=== PATIENT | female | born 1930 | race Two or more races ===

== ENCOUNTER 2016-05-02 12:08 | Inpatient (IN) | payer MEDICARE, OTHER ==
[~2016-05-02] VITALS: Ht 160 cm; Wt 46.7 kg
[2016-05-02] MEDS ORDERED: DIAZ5TAB4 PO (15:56)
[2016-05-02] MEDS ORDERED: ACET-868 PO (15:56)
[2016-05-02] MEDS ORDERED: MONT10TA22 PO (15:56)
[2016-05-02] MEDS ORDERED: CALC-108 PO (15:56)
[2016-05-02] MEDS ORDERED: APIX2.5T PO (15:56)
[2016-05-02] MEDS ORDERED: NEBI5TAB8 PO (15:56)
[2016-05-02] MEDS ORDERED: DOCU-25 PO (15:56)
[2016-05-02] MEDS ORDERED: SERT100T12 PO (15:56)
[2016-05-02] MEDS ORDERED: CETI-102 PO (15:56)
[2016-05-02] MEDS ORDERED: PSYL1PAC8 PO (15:56)
[2016-05-02] MEDS ORDERED: SENN1TAB77 PO (15:56)
[2016-05-02] MEDS ORDERED: METH5TAB6 PO (15:56)
[2016-05-02 16:00] VITALS: BP 132/61
[2016-05-02] MEDS ORDERED: IV NS 0.9% 1,000 ML IV PRN (16:28)
[2016-05-02] MEDS ORDERED: ONDANSETRON HCL/PF 4 MG/2 ML VIAL IVP PRN (16:30)
[2016-05-02] MEDS ORDERED: ZOLPIDEM TARTRATE 5 MG TABLET PO PRN (16:30)
[2016-05-02] MEDS ORDERED: MAG HYDROX/AL HYDROX/SIMETH 30 ML UDC PO PRN (16:30)
[2016-05-02] MEDS ORDERED: Z GUARD REMEDY 2 OZ OINT TP PRN (16:30)
[2016-05-02] MEDS ORDERED: ENOXAPARIN SODIUM 40 MG/0.4 ML DISP.SYRIN SQ SCH (16:30)
[2016-05-02] MEDS ORDERED: ACETAMINOPHEN 325 MG TABLET PO PRN ×2 (16:30)
[2016-05-02] MEDS ORDERED: MAGNESIUM HYDROXIDE 30 ML UDC PO PRN (16:30)
[2016-05-02] MEDS ORDERED: HYDROCODONE/APAP 5/325MG 1 EACH TABLET PO PRN (16:30)
[2016-05-02] MEDS: DOCUSATE SODIUM 100 MG CAPSULE PO SCH (17:00)
[2016-05-02] MEDS ORDERED: IV SET PRIMARY PUMP SET 1 EA INFUS.SET MC ONE (17:57)
[2016-05-02] MEDS: MONTELUKAST SODIUM (10MG) 10 MG TABLET PO SCH (18:00)
[2016-05-02 20:00] VITALS: BP 133/56
[2016-05-02] MEDS ORDERED: ENOXAPARIN SODIUM 30 MG/0.3 ML DISP.SYRIN SQ SCH (21:00)
[2016-05-02] MEDS: SENNOSIDES/DOCUSATE SODIUM 1 TAB TABLET PO SCH (21:50)
[2016-05-03] VITALS: BP 112/50
[2016-05-03 04:00] VITALS: BP 127/59
[2016-05-03] MEDS: PANTOPRAZOLE 40 MG TABLET.DR PO SCH (07:30)
[2016-05-03 08:00] VITALS: BP 132/61
[2016-05-03] MEDS: DOCUSATE SODIUM 100 MG CAPSULE PO SCH ×2 (08:35→17:00)
[2016-05-03] MEDS: SERTRALINE HCL 50 MG TABLET PO SCH (08:35)
[2016-05-03] MEDS: METHIMAZOLE (5MG) 5 MG TABLET PO SCH (08:35)
[2016-05-03 16:00] VITALS: BP_SYST 132; BP_SYST 144; BP_DIAS 61; BP_DIAS 69
[2016-05-03 16:49] LABS: BASOPHILS % (AUTO) 0.3 % (0.0-2.0); DIFF TOTAL % 100 %; EOSINOPHILS # (AUTO) 0.1 /CMM (0.0-0.7); EOSINOPHILS % (AUTO) 1.5 % (0.0-6.0); HEMATOCRIT 41 % (33-45); HEMOGLOBIN 13.6 g/dL (11.5-14.8); LYMPHOCYTES # (AUTO) 1.9 /CMM (0.8-4.8); LYMPHOCYTES % (AUTO) 19.7 % (20.0-44.0); MEAN CORPUSCULAR HEMOGLOBIN 30 PG (26.0-33.0); MEAN CORPUSCULAR HGB CONC 33 g/dl (31.0-36.0); MEAN CORPUSCULAR VOLUME 90 fL (82-100); MONOCYTES # (AUTO) 0.9 /CMM (0.1-1.30); MONOCYTES % (AUTO) 9.3 % (2.0-12.0); NEUTROPHILS # (AUTO) 6.8 /CMM (1.8-8.9); NEUTROPHILS % (AUTO) 69.2 % (43.0-81.0); PLATELET COUNT (AUTO) 374 /CMM (150-450); RED BLOOD CELL COUNT(AUTO) 4.52 MIL/uL (4.0-5.2); WHITE BLOOD COUNT (AUTO) 9.8 K/uL (4.3-11.0)
[2016-05-03] MEDS: APIXABAN 2.5 MG TABLET PO SCH (17:00)
[2016-05-03 17:02] LABS: CALCIUM, SERUM 9.3 mg/dL (8.5-10.1); CREATININE 0.8 mg/dL (0.6-1.3); PHOSPHORUS 3.3 mg/dL (2.5-4.9); POTASSIUM 4.1 mmol/L (3.5-5.1)
[2016-05-03 17:13] LABS: THYROID STIMULATING HORMONE 0.51 uIU/mL (0.358-3.74)
[2016-05-03] MEDS: MONTELUKAST SODIUM (10MG) 10 MG TABLET PO SCH (17:37)
[2016-05-03 20:00] VITALS: BP 107/58
[2016-05-03] MEDS: SENNOSIDES/DOCUSATE SODIUM 1 TAB TABLET PO SCH (21:57)
[2016-05-04 04:00] VITALS: BP 137/62
[2016-05-04 08:00] VITALS: BP 113/65
[2016-05-04] MEDS: PANTOPRAZOLE 40 MG TABLET.DR PO SCH ×2 (08:33→09:00)
[2016-05-04] MEDS: METHIMAZOLE (5MG) 5 MG TABLET PO SCH (09:00)
[2016-05-04] MEDS: SERTRALINE HCL 50 MG TABLET PO SCH (09:00)
[2016-05-04] MEDS: DOCUSATE SODIUM 100 MG CAPSULE PO SCH (09:00)
[2016-05-04] MEDS: APIXABAN 2.5 MG TABLET PO SCH (09:00)
== END 2016-05-04 12:34 | DRG 640 ==
LOC: TELE1 15:14 → MEDSG1 05-03 12:18
DX: E86.0 Dehydration (principal); G93.40 Encephalopathy, unspecified; E46 Unspecified protein-calorie malnutrition; Z68.1 Body mass index [BMI] 19.9 or less, adult; F03.90 Unspecified dementia, unspecified severity, without behavioral disturbance, psychotic disturbance, mood disturbance, and anxiety; I10 Essential (primary) hypertension; K59.00 Constipation, unspecified; Z87.891 Personal history of nicotine dependence
CPT/HCPCS: 36415; 80048-TC; 80061-TC; 83735-TC; 84100-TC; 84443-TC; 84484-TC; 85025-TC; J1650; J7030